=== PATIENT | female | born 1940 | race Two or more races ===

== ENCOUNTER 2018-04-08 10:30 | Emergency (ER) | payer MEDICARE, OTHER ==
[~2018-04-08] VITALS: Ht 157.5 cm; Wt 65.5 kg
[2018-04-08 10:33] VITALS: BP 129/71
== END 2018-04-08 12:28 | disposition home or self-care (01) ==
LOC: ED 12:20
DX: S42.201A Unspecified fracture of upper end of right humerus, initial encounter for closed fracture (principal); Z90.49 Acquired absence of other specified parts of digestive tract; W10.0XXA Fall (on)(from) escalator, initial encounter; Y93.89 Activity, other specified; Y99.8 Other external cause status; Y92.89 Other specified places as the place of occurrence of the external cause
CPT/HCPCS: 99284